=== PATIENT | male | born 1955 | race Hispanic/Latino ===

== ENCOUNTER 2018-07-20 15:56 | Outpatient (RCR) | payer OTHER | END 2018-07-31 | LOC: PT 15:56 | PROVIDERS: ATTEND Specialist | DX: S16.1XXA Strain of muscle, fascia and tendon at neck level, initial encounter (principal); M54.2 Cervicalgia; M62.81 Muscle weakness (generalized) ==

== ENCOUNTER 2018-08-19 10:00 | Outpatient (RCR) | payer OTHER | END 2018-08-31 | LOC: PT 10:00 | PROVIDERS: ATTEND Specialist | DX: S13.4XXA Sprain of ligaments of cervical spine, initial encounter (principal); M54.2 Cervicalgia; M62.81 Muscle weakness (generalized) ==

== ENCOUNTER → 2024-10-27 | Outpatient (REF) | payer MEDICARE ==
[~2024-10-27] MED LIST: IOPAMIDOL 370 MG/ML 100 ML INFUS..BTL INJ ONE
[2024-10-27 08:41] LABS: CREATININE, SERUM 0.86 mg/dL (0.72-1.25)
== END ==
LOC: CT 07:53
PROVIDERS: ATTEND Family Medicine
DX: K43.9 Ventral hernia without obstruction or gangrene (principal)
CPT/HCPCS: 36415; 74177; 82565; 84520; Q9967

== ENCOUNTER 2025-06-02 14:11 | Emergency (ER) | payer MEDICARE, OTHER ==
[~2025-06-02] VITALS: Ht 172.7 cm; Wt 113.4 kg
[2025-06-02] MEDS ORDERED: SODIUM CHLORIDE FLUSH 10 ML SYR IV PRN (14:45)
[2025-06-02 15:03] LABS: BASOPHILS % 0.2 % (0.0-1.0); EOSINOPHILS % 0.4 % (0.0-6.0); LYMPHOCYTES % 8.8 % (18.0-39.1); MONOCYTES % 6.4 % (4.4-11.3); NEUTROPHILS % 83.7 % (38.7-80.0); RED CELL DISTRIBUTION WIDTH 15.0 % (11.7-14.4)
[2025-06-02 15:13] LABS: INR 1.02
[2025-06-02 15:19] LABS: EST GLOMERULAR FILTRATION RATE 49.0 ML/MIN (>=60)
[2025-06-02] MEDS ORDERED: DEXTROSE 50% SYRINGE 50 ML IV ONE ×2 (15:26→19:17)
[2025-06-02] MEDS: DEXTROSE 50% SYRINGE 50 ML IV STA (15:30)
[2025-06-02 16:30] VITALS: BP 110/60; PULSE 82; RESP 18
[2025-06-02 17:30] VITALS: PULSE 82; RESP 16; TEMP 98.1; O2SAT 100
[2025-06-02] MEDS: DEXTROSE 10% 1,000 ML IV ONE (18:10)
[2025-06-02] MEDS: DEXTROSE 50% SYRINGE 50 ML IV ONE (18:37)
[2025-06-02] MEDS ORDERED: DEXTROSE 50% SYRINGE 50 ML IV STA (19:22)
== END 2025-06-02 19:30 | disposition short-term general hospital (02) ==
LOC: ER 14:32
DX: H43.391 Other vitreous opacities, right eye (principal); E11.649 Type 2 diabetes mellitus with hypoglycemia without coma; I10 Essential (primary) hypertension; E78.5 Hyperlipidemia, unspecified
CPT/HCPCS: 36415; 70450; 71045; 80053; 82948; 83880; 84484; 85025; 85610; 85730; 93005; 94760; 99284; J7799